=== PATIENT | female | born 2000 | race African-American/Black ===

== ENCOUNTER 2018-10-26 09:50 | Day surgery (SDC) | payer OTHER ==
[2018-10-25 17:33] VITALS: BMI 24.1
[~2018-10-26] VITALS: Ht 162.6 cm; Wt 63.6 kg
[2018-10-26] VITALS (18 sets, daily range): BP systolic 102–128; BP diastolic 53–65; PULSE 61–106; RESP 11–27; Ht 162.6 cm; Wt 63.6 kg
[2018-10-26] MEDS ORDERED: CEFAZOLIN 2 GM/50 ML (PMX) 50 ML IVPB SCH (10:00)
--- NOTE | 2018-10-26 11:30 | HPN ---
Date/Time of Note Date/Time of Note DATE: 10/26/18 TIME: 11:29 Interval H&P Admission Note Pt. seen H&P reviewed: No system changes ASTON BROWNING DPM Oct 26, 2018 11:30
--- NOTE | 2018-10-26 11:39 | PREAC ---
Date/Time of Note Date/Time of Note DATE: 10/26/18 TIME: 11:38 Anesthesia Eval and Record Evaluation Time Pre-Procedure Interview DATE: 10/26/18 TIME: 11:38 Age 18 Sex female NPO: 8 hrs Preoperative diagnosis Painful bunion, right foot Planned procedure Right foot bunionectomy with metatarsal cuneiform joint fusion Past Medical History Past Medical History: None Surgery & Anesthesia Issues No known issue Meds Anticoagulation: No Beta Marsha within 24 hr: No Reason Beta Marsha not given: Pt. not on B-Marsha No Active Prescriptions or Reported Meds Current Medications Cefazolin Sodium/ Dextrose 50 ml @ 100 mls/hr PREOP IVPB ; Start 10/26/18 at 10:00; Stop 10/26/18 at 15:00 Meds reviewed: Yes Allergies Coded Allergies: No Known Allergy (Unverified , 10/25/18) Allergies Reviewed: Yes Labs/Studies Labs Reviewed: Reviewed by anesthesiologist test: Negative Pre-procedure Exam Last vitals Vital Signs Date Temp Pulse Resp B/P (MAP) Pulse Ox O2 O2 Flow FiO2 Time Delivery Rate 10/26/18 97.9 61 16 102/65 100 Room Air 11:18 (77) Airway: Adequate mouth opening Mallampati: Mallampati I Teeth: Normal Lung: Normal Heart: Normal ASA Physical Status ASA physical status: 1 Emergency: None Planned Anesthetic General/MAC: LMA Planned Pain Management Parenteral pain med Pre-operative Attestations Prior to commencing anesthesia and surgery, the patient was re-evaluated, there was verification of: *The patient's identity *The results of appropriate recent lab work and preoperative vital signs *The above evaluation not changing prior to induction *Anesthetic plan, risk benefits, alternative and complications discussed with patient/family; questions answered; patient/family understands, accepts and wishes to proceed. YRIS SANTOS MD Oct 26, 2018 11:39
[2018-10-26] MEDS ORDERED: CEFAZOLIN 1 GM INJ ONE (11:57)
[2018-10-26] MEDS ORDERED: ONDANSETRON 4 MG INJ ONE (11:57)
[2018-10-26] MEDS ORDERED: LIDOCAINE 2% (SDV) 5 ML INJ ONE (11:57)
[2018-10-26] MEDS ORDERED: METOCLOPRAMIDE 10 MG INJ ONE (11:57)
[2018-10-26] MEDS ORDERED: MEPERIDINE 100 MG INJ ONE (11:57)
[2018-10-26] MEDS ORDERED: PROPOFOL 20 ML ONE (11:57)
[2018-10-26] MEDS ORDERED: THROMBIN (BOVINE) 5,000 UNIT VIAL TP ONE (12:06)
[2018-10-26] MEDS ORDERED: GELATIN SIZE 100 SPONGE ONE (12:06)
[2018-10-26] MEDS ORDERED: ROPIVACAINE 0.5 % 30 ML VIAL ONE (12:07)
[2018-10-26] MEDS ORDERED: POLYMYXIN/BACITRACIN 1L IRRIG ONE (12:07)
[2018-10-26] MEDS ORDERED: OXYCODONE/ACETAMINOPHEN (5/325) TAB PO PRN ×2 (13:30)
[2018-10-26] MEDS ORDERED: METOCLOPRAMIDE 10 MG INJ IV PRN (13:30)
[2018-10-26] MEDS ORDERED: MEPERIDINE 25 MG INJ IV PRN (13:30)
[2018-10-26] MEDS ORDERED: ONDANSETRON 4 MG INJ IV PRN ×2 (13:30→15:30)
[2018-10-26] MEDS ORDERED: DIPHENHYDRAMINE 50 MG INJ IV PRN (13:30)
[2018-10-26] MEDS ORDERED: FENTAnyl 50 MCG/ML VIAL IV PRN ×3 (13:30)
[2018-10-26] MEDS ORDERED: HYDROmorphONE 1 MG/5 ML IV SYRINGE IV PRN ×3 (13:30)
[2018-10-26] MEDS ORDERED: MIDAZOLAM 1 MG/ML 2 ML INJ IV PRN (13:30)
[2018-10-26] MEDS ORDERED: BUPIVACAINE 0.25% (MPF) 30 ML INJ ONE (14:32)
--- NOTE | 2018-10-26 15:25 | SIPON ---
Date/Time of Note Date/Time of Note DATE: 10/26/18 TIME: 15:24 Operative Report Preoperative Diagnosis Right foot painful bunion Postoperative Diagnosis Same Operation/Procedure Performed Right foot bunionectomy with metatarsal cuneiform joint fusion using internal fi xation. Surgeon see signature line shop assistant N/A Anesthesia: general Estimated blood loss: 10 - 50 ml's Transfusion Required none Specimen Bone 1st metatarsal Grafts/Implants none Complications none ASTON BROWNING DPM Oct 26, 2018 15:25
[2018-10-26] MEDS ORDERED: NACL 0.9% 3 ML SYG IV SCH (15:30)
[2018-10-26] MEDS ORDERED: HYDROmorphONE 1 MG/ML SYG IV PRN (15:30)
--- NOTE | 2018-10-26 15:35 | OPR ---
Date/Time of Note Date/Time of Note DATE: 10/26/18 TIME: 15:26 Operative Report Procedure Date: Oct 26, 2018 Preoperative Diagnosis Right foot painful bunion Postoperative Diagnosis Same Operation/Procedure Performed Right foot bunionectomy with metatarsal cuneiform joint fusion using internal fixation. APPLICATION OF POSTERIOR SPLINT Surgeon see signature line Flat Lock Machine Operator none Anesthesia Type: general Estimated Blood Loss: 10 - 50 ml's Transfusion none Specimen Bone right foot 1st metatarsal. Grafts/Implants 2 x 4.0 kota cannulated screws Complications none Pt Condition Post Procedure: stable Procedure Description PATIENT BROUGHT INTO OPERATING ROOM AND PLACED ON OPERATING TABLE IN SUPINE POSITION. PATIENT PLACED UNDER GENERAL ANESTHESIA BY DR. SANTOS. RIGHT THIGH TOURNIQUET APPLIED. PATIENT GIVEN 1GM ANCEF. PATIENT'S RIGHT FOOT WAS PREPPED AND DRAPED IN USUAL STERILE MANNER. TIGHT TOURNIQUET INFLATED TO 300 MMHG. TENSION TAKEN TO RIGHT FOOT 1ST METATARSAL PHALANGEAL JOINT. MEDIAL INCISION MADE DOWN TO CAPSULE. CAREFUL TENSION NOT TO JEOPARDIZE NEUROVASCULAR BUNDLE. CAPSULOTOMY PERFORMED. INTERCAPSULAR RELEASE USING MCGLAMMARY SCOPES. MEDIAL EMMINENCE RESECTED USING SAGGITAL SAW. TENSION NOW TAKEN TO 1ST METATARSAL CUNEIFORM JOINT WHERE A SEPARATE INCISION WAS MADE. INCISION DEEPENED WITH BLUNT AND SHARP DISECTION WITH CAREFUL TENSION NOT TO JEOPARDIZE NEUROVASCULAR BUNDLE. 1ST METATARSAL CUNEIFORM JOINT IDENTIFIED. SOFT TISSUE RESECTION FROM JOINT. USING SAGGITAL SAW CUT WERE MADE BASE OF 1ST METATARSAL AND ALSO CUNEIFORM. RESECTED BONE REMOVED. JOINT INSPECTED WITH LAMINAR INTERPRETER. FIXATION WITH GUIDEWIRE FROM 4.0 CANNULATED SCREWS. POSITION OF METATARSAL CHECKED UNDER FLOUROSCOPY 32 AND 38 4.0 SCREWS PLACED WITH GOOD COMPRESSION NOTED. SCREW POSITION CHECKED UNDER FLUOROSCOPY AND GOOD POSITION NOTED. COPIOUS LAVAGE WITH SALINE MIXED BACITRACIN. SUB Q RE-APPOXIMAGED USING 2.0 VICRYL. SUB-Q WITH 3.0 VICRYL. SKIN WITH 4.0 PROLENE. BLOCK WITH 15 CC OF MARCAINE 0.25 % PLAIN. APPROPRIAE DRESSING WITH XERFORM, 4X4, TIERRA AND COBAND. POSTERIOR SPLINT APPLIED AND PATIENT TRANSITIONED INTO RECOVERY AREA WITH ALL VITAL SIGNS IN NORMAL LIMIT. PATIENT WILL BE GOING HOME WITH PAIN MEDICATION AND ANTIBIOTICS. ASTON BROWNING DPM Oct 26, 2018 15:35
--- NOTE | 2018-10-26 17:31 | PAC ---
Date/Time of Note Date/Time of Note DATE: 10/26/18 TIME: 17:31 Post-Anesthesia Notes Post-Anesthesia Note Last documented vital signs Vital Signs Date Temp Pulse Resp B/P (MAP) Pulse Ox O2 O2 Flow FiO2 Time Delivery Rate 10/26/18 98.0 81 17 110/58 100 Room Air 16:51 (75) Activity: WNL Respiratory function: WNL Cardiovascular function: WNL Mental status: Baseline Pain reasonably controlled: Yes Hydration appropriate: Yes Nausea/Vomiting absent: Yes YRIS SANTOS MD Oct 26, 2018 17:31
== END 2018-10-26 17:26 | disposition home or self-care (01) ==
LOC: SDS 09:50 → EDBD 12:00 → SDS 17:26
PROVIDERS: ATTEND Podiatrist Foot & Ankle Surgery
DX: M21.611 Bunion of right foot (principal)
CPT/HCPCS: 73620; 73630; 88304; 88311; C1713; J0690; J1170; J2175; J2405; J2765; J2795